=== PATIENT | male | born 1955 | race Caucasian/White ===

== ENCOUNTER 2016-10-25 09:48 | Outpatient (CLI) | payer OTHER | END 2016-10-25 23:59 | DX: I10 Essential (primary) hypertension (principal); E78.5 Hyperlipidemia, unspecified; R31.9 Hematuria, unspecified; Z12.5 Encounter for screening for malignant neoplasm of prostate ==

== ENCOUNTER 2017-12-21 08:00 | Outpatient (CLI) | payer OTHER ==
[2017-12-21 19:27] LABS: BASOPHILS # (AUTO) 0.1 10^3/uL (0.0-0.1); BASOPHILS % (AUTO) 1.1 %; EOSINOPHILS # (AUTO) 0.2 10^3/uL (0.0-0.7); EOSINOPHILS % (AUTO) 4.5 %; HGB - HEMOGLOBIN 14.6 g/dL (14.0-18.0); LYMPHOCYTES # (AUTO) 2.2 10^3/uL (1.5-3.5); LYMPHOCYTES % (AUTO) 39.9 %; MEAN CORPUSCULAR HEMOGLOBIN 27.2 pg (27.0-31.0); MEAN CORPUSCULAR HGB CONC 31.9 g/dL (32.0-36.0); MEAN CORPUSCULAR VOLUME 85.1 fL (80.0-94.0); MONOCYTES # (AUTO) 0.4 10^3/uL (0.0-1.0); MONOCYTES % (AUTO) 7.4 %; NEUTROPHILS # (AUTO) 2.6 10^3/uL (1.5-6.6); NEUTROPHILS % (AUTO) 47.1 %; PLT - PLATELET COUNT 165 10^3/uL (130-450); RED BLOOD COUNT 5.39 10^6/uL (4.70-6.10); RED CELL DISTRIBUTION WIDTH 13.3 % (12.0-15.0); WHITE BLOOD COUNT 5.5 x10^3/uL (4.8-10.8)
[2017-12-21 19:36] LABS: ALBUMIN 4.5 g/dL (3.2-5.5); ALBUMIN/GLOBULIN RATIO 1.2 (1.0-2.2); ALKALINE PHOSPHATASE 53 IU/L (42-121); ALT ALANINE AMINOTRANSFERASE 27 IU/L (10-60); AST ASPARTATE AMINOTRANSFERASE 30 IU/L (10-42); BILIRUBIN,TOTAL 1.2 mg/dL (0.2-1.0); BUN - BLOOD UREA NITROGEN 14 mg/dL (6-20); CALCIUM 9.7 mg/dL (8.5-10.3); CARBON DIOXIDE - CO2 28 mmol/L (21-32); CHLORIDE 104 mmol/L (101-111); CHOL/HDL RATIO 6.1 (<5.0); CHOLESTEROL 225 mg/dL; CREATININE 0.9 mg/dL (0.6-1.2); GFR - MDRD 86 (>89); GLUCOSE 93 mg/dL (70-100); HDL CHOLESTEROL 37 mg/dL; LDL CHOLESTEROL,CALCULATED 157 mg/dL; LDL/HDL RATIO 4.2 (<3.6); SODIUM 141 mmol/L (135-145); TOTAL PROTEIN 8.2 g/dL (6.7-8.2); VLDL CHOLESTEROL 31 mg/dL
== END 2017-12-21 08:01 | disposition home or self-care (01) ==
LOC: LAB.WCP 08:00
PROVIDERS: ATTEND Family Medicine
DX: Z12.5 Encounter for screening for malignant neoplasm of prostate (principal); I10 Essential (primary) hypertension; E78.5 Hyperlipidemia, unspecified
CPT/HCPCS: 36415; 80053; 80061; 83721; 84153; 84443; 85025

== ENCOUNTER 2019-01-04 08:00 | Outpatient (CLI) | payer OTHER ==
[2019-01-04 12:47] LABS: BASOPHILS # (AUTO) 0.1 10^3/uL (0.0-0.1); BASOPHILS % (AUTO) 1.2 %; EOSINOPHILS # (AUTO) 0.2 10^3/uL (0.0-0.7); EOSINOPHILS % (AUTO) 3.1 %; HGB - HEMOGLOBIN 14.2 g/dL (14.0-18.0); LYMPHOCYTES # (AUTO) 2.7 10^3/uL (1.5-3.5); LYMPHOCYTES % (AUTO) 42.6 %; MEAN CORPUSCULAR HEMOGLOBIN 27.5 pg (27.0-31.0); MEAN CORPUSCULAR HGB CONC 32.5 g/dL (32.0-36.0); MEAN CORPUSCULAR VOLUME 84.6 fL (80.0-94.0); MEAN PLATELET VOLUME 9.8 fL (7.4-11.4); MONOCYTES # (AUTO) 0.6 10^3/uL (0.0-1.0); MONOCYTES % (AUTO) 8.8 %; NEUTROPHILS # (AUTO) 2.8 10^3/uL (1.5-6.6); NEUTROPHILS % (AUTO) 44.3 %; PLT - PLATELET COUNT 160 10^3/uL (130-450); RED BLOOD COUNT 5.17 10^6/uL (4.70-6.10); RED CELL DISTRIBUTION WIDTH 13.2 % (12.0-15.0); WHITE BLOOD COUNT 6.3 x10^3/uL (4.8-10.8)
[2019-01-04 12:54] LABS: BILIRUBIN,URINE NEGATIVE (NEGATIVE); GLUCOSE, URINE (UA) NEGATIVE (NEGATIVE); KETONES,URINE (UA) NEGATIVE (NEGATIVE); LEUKOCYTE ESTERASE, URINE NEGATIVE (NEGATIVE); NITRITE,URINE NEGATIVE (NEGATIVE); OCCULT BLOOD,URINE NEGATIVE (NEGATIVE); PROTEIN,URINE NEGATIVE (NEGATIVE); UROBILINOGEN,URINE 0.2 (NORMAL) E.U./dL (NORMAL)
[2019-01-04 12:56] LABS: CLARITY,URINE CLEAR (CLEAR)
[2019-01-04 13:05] LABS: ALBUMIN 4.1 g/dL (3.2-5.5); ALBUMIN/GLOBULIN RATIO 1.1 (1.0-2.2); ALKALINE PHOSPHATASE 51 IU/L (42-121); ALT ALANINE AMINOTRANSFERASE 22 IU/L (10-60); AST ASPARTATE AMINOTRANSFERASE 29 IU/L (10-42); BILIRUBIN,TOTAL 1.2 mg/dL (0.2-1.0); BUN - BLOOD UREA NITROGEN 17 mg/dL (6-20); CALCIUM 8.9 mg/dL (8.5-10.3); CARBON DIOXIDE - CO2 23 mmol/L (21-32); CHLORIDE 106 mmol/L (101-111); CHOL/HDL RATIO 4.7 (<5.0); CHOLESTEROL 180 mg/dL; CREATININE 0.9 mg/dL (0.6-1.2); GFR - MDRD 86 (>89); GLUCOSE 91 mg/dL (70-100); HDL CHOLESTEROL 38 mg/dL; LDL CHOLESTEROL,CALCULATED 114 mg/dL; SODIUM 139 mmol/L (135-145); TOTAL PROTEIN 7.8 g/dL (6.7-8.2); VLDL CHOLESTEROL 28 mg/dL
== END 2019-01-04 23:59 | disposition home or self-care (01) ==
LOC: LAB.WCP 08:00
PROVIDERS: ATTEND Family Medicine
DX: I10 Essential (primary) hypertension (principal); E78.5 Hyperlipidemia, unspecified; Z12.5 Encounter for screening for malignant neoplasm of prostate; R31.9 Hematuria, unspecified
CPT/HCPCS: 36415; 80053; 80061; 81001; 81003; 83721; 84153; 85025; 87086

== ENCOUNTER 2019-04-11 09:00 | Outpatient (CLI) | payer OTHER ==
--- NOTE | 2019-04-13 08:47 | XRAY Report ---
Reason: RIGHT KNEE PAIN Procedure Date: 04/11/2019 Accession Number: [id number] / [id number] Procedure: WCP - Knee 3 View RT CPT Code: FULL RESULT: EXAM: RIGHT KNEE RADIOGRAPHY EXAM DATE: 04/11/2019 12:17 PM. CLINICAL HISTORY: Right knee pain. COMPARISON: None. TECHNIQUE: 3 views. FINDINGS: Bones: Normal. No fractures or bone lesions. No significant osteophytic spurring. Joints: Minimal narrowing of the medial compartment of the knee. No chondrocalcinosis. Soft Tissues: Normal. No soft tissue swelling. IMPRESSION: Minimal degenerative changes at the knee. RADIA
== END 2019-04-11 23:59 | disposition home or self-care (01) ==
LOC: DI.WCP 09:00 → EDSTATUS 13:28 → DI.WCP 23:59
PROVIDERS: ATTEND Family Medicine
DX: M17.11 Unilateral primary osteoarthritis, right knee (principal)

== ENCOUNTER 2019-06-16 09:47 | Outpatient (CLI) | payer OTHER ==
--- NOTE | 2019-06-17 17:21 | MRI Report ---
Reason: RT KNEE PAIN Procedure Date: 06/16/2019 Accession Number: [id number] / [id number] Procedure: MRI - Knee RT W/O CPT Code: Final Report FULL RESULT: EXAM: RIGHT KNEE MRI WITHOUT CONTRAST EXAM DATE: 06/16/2019 10:25 AM. CLINICAL HISTORY: Right knee pain. COMPARISON: Radiographs 04/11/2019. TECHNIQUE: Multiplanar, multisequence T1-weighted and fluid-sensitive sequences of the knee without contrast. Other: None. FINDINGS: Bones: No fracture or bone lesion. Mild subchondral edema and cystic changes at the far posterior aspect medial femoral condyle and median ridge of the patella. Articular Cartilage: Small region deep partial to full-thickness loss far posterior aspect medial femoral condyle. Shallow partial-thickness loss far posterior aspect lateral femoral condyle. Moderate-sized region of deep partial-thickness loss and deep partial to full-thickness fissuring/tearing medial and lateral patellar facets extending over the median ridge. Small focus deep partial to full-thickness fissuring/tearing medial trochlea. Medial Meniscus: Complex tear of the body with deep radial component through the central substance and horizontal component contacting the superior articular surface. Extruded versus flipped fragment extends 0.7 cm into the superior gutter. Horizontal tear extends throughout the free edge posterior horn. Lateral Meniscus: The lateral meniscus is intact. Cruciate Ligaments: The anterior and posterior cruciate ligaments are intact. Collateral Ligaments: The medial collateral and lateral collateral ligamentous structures are intact. Tendons: Mild quadriceps and patellar tendinopathy. Popliteus and semimembranosus tendons unremarkable. Musculature: No edema or fatty atrophy. Other: Small joint effusion with synovitis.Minimal popliteal cyst. No loose bodies. The medial and lateral retinacula are intact. Mild to moderate subcutaneous edema anteriorly. 1.4 cm ovoid focal component of fluid with insinuating fat over the proximal patellar tendon. Minimal reactive edema in the anterior fat pads. IMPRESSION: 1. Complex degenerative tear body and posterior horn medial meniscus with radial and horizontal components and extruded versus flipped fragment. 2. Mild quadriceps and patellar tendinopathy. 3. Small joint effusion with synovitis. 4. Mild to moderate cartilage loss of the medial and patellofemoral compartments with deep partial to full-thickness fissuring/tearing at the patellofemoral joint. 5. Mild prepatellar fluid collection. This may be due to bursitis. Sequelae of hematoma and more lobulated lesion also in the differential. Recommend clinical correlate. RADIA
== END 2019-06-16 09:48 | disposition home or self-care (01) ==
LOC: DI 09:47
PROVIDERS: ATTEND Family Medicine
DX: S83.241A Other tear of medial meniscus, current injury, right knee, initial encounter (principal); S76.111A Strain of right quadriceps muscle, fascia and tendon, initial encounter; M65.861 Other synovitis and tenosynovitis, right lower leg

== ENCOUNTER 2020-06-09 14:29 | Outpatient (CLI) | payer OTHER ==
[2020-06-09 17:47] LABS: BILIRUBIN,URINE NEGATIVE (NEGATIVE); CLARITY,URINE CLEAR (CLEAR); GLUCOSE, URINE (UA) NEGATIVE (NEGATIVE); KETONES,URINE (UA) NEGATIVE (NEGATIVE); LEUKOCYTE ESTERASE, URINE NEGATIVE (NEGATIVE); NITRITE,URINE NEGATIVE (NEGATIVE); OCCULT BLOOD,URINE NEGATIVE (NEGATIVE); PROTEIN,URINE NEGATIVE (NEGATIVE); UROBILINOGEN,URINE 0.2 (NORMAL) E.U./dL (NORMAL)
[2020-06-09 17:53] LABS: BACTERIA,URINE None Seen /HPF (None Seen); RBC,URINE None Seen /HPF (0-5); SQUAMOUS EPITHELIAL CELL,UR NONE SEEN (<= Few)
[2020-06-09 17:58] LABS: BASOPHILS # (AUTO) 0.1 10^3/uL (0.0-0.1); BASOPHILS % (AUTO) 0.9 %; EOSINOPHILS # (AUTO) 0.4 10^3/uL (0.0-0.7); EOSINOPHILS % (AUTO) 4.7 %; HGB - HEMOGLOBIN 14.9 g/dL (14.0-18.0); LYMPHOCYTES # (AUTO) 2.9 10^3/uL (1.5-3.5); LYMPHOCYTES % (AUTO) 31.7 %; MEAN CORPUSCULAR HEMOGLOBIN 27.6 pg (27.0-31.0); MEAN CORPUSCULAR HGB CONC 31.7 g/dL (32.0-36.0); MEAN PLATELET VOLUME 12.3 fL (7.4-11.4); MONOCYTES # (AUTO) 0.9 10^3/uL (0.0-1.0); MONOCYTES % (AUTO) 9.7 %; NEUTROPHILS # (AUTO) 4.9 10^3/uL (1.5-6.6); NEUTROPHILS % (AUTO) 52.7 %; PLT - PLATELET COUNT 196 10^3/uL (130-450); RED CELL DISTRIBUTION WIDTH 12.9 % (12.0-15.0); WHITE BLOOD COUNT 9.2 x10^3/uL (4.8-10.8)
[2020-06-09 18:15] LABS: ALKALINE PHOSPHATASE 54 IU/L (42-121); ALT ALANINE AMINOTRANSFERASE 27 IU/L (10-60); AST ASPARTATE AMINOTRANSFERASE 26 IU/L (10-42); BILIRUBIN,TOTAL 0.7 mg/dL (0.2-1.0); BUN - BLOOD UREA NITROGEN 17 mg/dL (6-20); CALCIUM 9.6 mg/dL (8.5-10.3); CARBON DIOXIDE - CO2 25 mmol/L (21-32); CHLORIDE 105 mmol/L (101-111); CHOLESTEROL 191 mg/dL; CREATININE 1.1 mg/dL (0.6-1.2); GLUCOSE 103 mg/dL (70-100); HDL CHOLESTEROL 38 mg/dL; LDL CHOLESTEROL,CALCULATED 110 mg/dL; LDL/HDL RATIO 2.9 (<3.6); SODIUM 139 mmol/L (135-145); VLDL CHOLESTEROL 43 mg/dL
== END 2020-06-09 23:59 | disposition home or self-care (01) ==
LOC: LAB.WCP 14:29
PROVIDERS: ATTEND Family Medicine
DX: Z00.00 Encounter for general adult medical examination without abnormal findings (principal); M10.072 Idiopathic gout, left ankle and foot; R31.9 Hematuria, unspecified; Z12.5 Encounter for screening for malignant neoplasm of prostate
CPT/HCPCS: 36415; 80053; 80061; 81001; 83721; 84153; 84550; 85025; 85651; 87086

== ENCOUNTER 2021-05-05 15:57 | Outpatient (CLI) | payer OTHER ==
--- NOTE | 2021-05-05 19:18 | XRAY Report ---
PROCEDURE: Lumbar Spine 2 View INDICATIONS: LUMBAR BACK PX TECHNIQUE: 2 views of the lumbar spine were acquired. COMPARISON: None. FINDINGS: Bones: 5 [id number] vertebrae are present. There is normal bony alignment. (06/27/2012 2016. No vertebral body compression fractures. No suspicious bony lesions. Soft tissues: Overlying bowel gas pattern is normal. No suspicious soft tissue calcifications. IMPRESSION: Degenerative disc disease throughout lower thoracic and lumbar spine. No acute compressi on fracture or spondylolisthesis. Reviewed by: Carter Winn MD on 05/05/2021 7:17 PM PDT Approved by: Carter Winn MD on 05/05/2021 7:17 PM PDT Station ID: [id number]
--- NOTE | 2021-05-05 19:44 | XRAY Report ---
PROCEDURE: Abdomen 1 View X-Ray INDICATIONS: LUMBAR BACK PX TECHNIQUE: 1 view of the abdomen were acquired. COMPARISON: None. FINDINGS: Surgical changes and devices: None. Bowel: No pneumoperitoneum. The bowel gas pattern is normal. Soft tissues: No masses; visualized solid organ contours appear normal in size. No suspicious abdom inal calcifications. Bones: No suspicious bony abnormalities. IMPRESSION: No gross renal calcification. No bowel obstruction or gross free air. Reviewed by: Carter Winn MD on 05/05/2021 7:43 PM PDT Approved by: Carter Winn MD on 05/05/2021 7:43 PM PDT Station ID: [id number]
== END 2021-05-05 23:59 | disposition home or self-care (01) ==
LOC: DI.N 15:57
PROVIDERS: ATTEND Physician Assistant Medical
DX: M51.36 Other intervertebral disc degeneration, lumbar region (principal)

== ENCOUNTER 2021-07-07 14:34 | Outpatient (CLI) | payer OTHER ==
[2021-07-07 18:35] LABS: BASOPHILS # (AUTO) 0.1 10^3/uL (0.0-0.1); BASOPHILS % (AUTO) 1.1 %; EOSINOPHILS # (AUTO) 0.4 10^3/uL (0.0-0.7); EOSINOPHILS % (AUTO) 5.2 %; HCT - HEMATOCRIT 46.7 % (42.0-52.0); HGB - HEMOGLOBIN 14.6 g/dL (14.0-18.0); LYMPHOCYTES # (AUTO) 3.1 10^3/uL (1.5-3.5); LYMPHOCYTES % (AUTO) 40.5 %; MEAN CORPUSCULAR HGB CONC 31.3 g/dL (32.0-36.0); MEAN CORPUSCULAR VOLUME 86.5 fL (80.0-94.0); MEAN PLATELET VOLUME 11.5 fL (7.4-11.4); MONOCYTES # (AUTO) 0.6 10^3/uL (0.0-1.0); MONOCYTES % (AUTO) 8.2 %; NEUTROPHILS # (AUTO) 3.4 10^3/uL (1.5-6.6); NEUTROPHILS % (AUTO) 44.7 %; PLT - PLATELET COUNT 205 10^3/uL (130-450); WHITE BLOOD COUNT 7.5 x10^3/uL (4.8-10.8)
[2021-07-07 18:36] LABS: BILIRUBIN,URINE NEGATIVE (NEGATIVE); GLUCOSE, URINE (UA) NEGATIVE (NEGATIVE); KETONES,URINE (UA) NEGATIVE (NEGATIVE); LEUKOCYTE ESTERASE, URINE NEGATIVE (NEGATIVE); NITRITE,URINE NEGATIVE (NEGATIVE); OCCULT BLOOD,URINE NEGATIVE (NEGATIVE); PH,URINE 5.5 PH (5.0-7.5); PROTEIN,URINE NEGATIVE (NEGATIVE); UROBILINOGEN,URINE 0.2 (NORMAL) E.U./dL (NORMAL)
[2021-07-07 18:43] LABS: BACTERIA,URINE None Seen /HPF (None Seen); CLARITY,URINE CLEAR (CLEAR); RBC,URINE None Seen /HPF (0-5); SQUAMOUS EPITHELIAL CELL,UR NONE SEEN (<= Few); WBC,URINE 0-3 /HPF (0-3)
[2021-07-07 19:04] LABS: ALBUMIN 4.2 g/dL (3.2-5.5); ALBUMIN/GLOBULIN RATIO 1.1 (1.0-2.2); ALKALINE PHOSPHATASE 59 IU/L (42-121); ALT ALANINE AMINOTRANSFERASE 34 IU/L (10-60); AST ASPARTATE AMINOTRANSFERASE 28 IU/L (10-42); BILIRUBIN,TOTAL 0.5 mg/dL (0.2-1.0); BUN - BLOOD UREA NITROGEN 19 mg/dL (6-20); CALCIUM 9.1 mg/dL (8.5-10.3); CARBON DIOXIDE - CO2 26 mmol/L (21-32); CHLORIDE 103 mmol/L (101-111); CHOL/HDL RATIO 6.1 (<5.0); CHOLESTEROL 206 mg/dL; GFR - MDRD 75 (>89); GLUCOSE 99 mg/dL (70-100); HDL CHOLESTEROL 34 mg/dL; LDL CHOLESTEROL,CALCULATED 129 mg/dL; LDL/HDL RATIO 3.8 (<3.6); POTASSIUM 4.2 mmol/L (3.5-5.0); SODIUM 139 mmol/L (135-145); TOTAL PROTEIN 8.1 g/dL (6.7-8.2); TRIGLYCERIDES 213 mg/dL; URIC ACID 8.1 mg/dL (2.6-7.2); VLDL CHOLESTEROL 43 mg/dL
== END 2021-07-07 23:59 | disposition home or self-care (01) ==
LOC: LAB.WCP 14:34
PROVIDERS: ATTEND Family Medicine
DX: I10 Essential (primary) hypertension (principal); E78.5 Hyperlipidemia, unspecified; R31.9 Hematuria, unspecified; Z12.5 Encounter for screening for malignant neoplasm of prostate; M10.072 Idiopathic gout, left ankle and foot
CPT/HCPCS: 36415; 80053; 80061; 81001; 83721; 84153; 84550; 85025; 87086

== ENCOUNTER 2022-11-25 09:46 | Outpatient (CLI) | payer BC, MEDICARE, OTHER ==
[2022-11-25 11:33] LABS: BASOPHILS # (AUTO) 0.1 10^3/uL (0.0-0.1); BASOPHILS % (AUTO) 1.1 %; EOSINOPHILS # (AUTO) 0.3 10^3/uL (0.0-0.7); EOSINOPHILS % (AUTO) 4.3 %; HCT - HEMATOCRIT 46.7 % (42.0-52.0); HGB - HEMOGLOBIN 14.5 g/dL (14.0-18.0); LYMPHOCYTES # (AUTO) 2.7 10^3/uL (1.5-3.5); LYMPHOCYTES % (AUTO) 41.2 %; MEAN PLATELET VOLUME 11.6 fL (7.4-11.4); MONOCYTES # (AUTO) 0.7 10^3/uL (0.0-1.0); MONOCYTES % (AUTO) 10.2 %; NEUTROPHILS # (AUTO) 2.8 10^3/uL (1.5-6.6); PLT - PLATELET COUNT 198 10^3/uL (130-450); RED BLOOD COUNT 5.37 10^6/uL (4.70-6.10); RED CELL DISTRIBUTION WIDTH 12.7 % (12.0-15.0); WHITE BLOOD COUNT 6.5 x10^3/uL (4.8-10.8)
[2022-11-25 11:57] LABS: ESTIMATED AVERAGE GLUCOSE 131 mg/dL (70-100); HEMOGLOBIN A1c% 6.2 % (4.27-6.07)
[2022-11-25 12:04] LABS: ALBUMIN 4.2 g/dL (3.2-5.5); ALBUMIN/GLOBULIN RATIO 1.2 (1.0-2.2); ALKALINE PHOSPHATASE 56 IU/L (42-121); ALT ALANINE AMINOTRANSFERASE 33 IU/L (10-60); AST ASPARTATE AMINOTRANSFERASE 31 IU/L (10-42); BILIRUBIN,TOTAL 0.9 mg/dL (0.2-1.0); BUN - BLOOD UREA NITROGEN 15 mg/dL (6-20); CALCIUM 9.2 mg/dL (8.5-10.3); CARBON DIOXIDE - CO2 28 mmol/L (21-32); CHLORIDE 103 mmol/L (101-111); CHOL/HDL RATIO 4.9 (<5.0); CHOLESTEROL 196 mg/dL; CREATININE 0.9 mg/dL (0.6-1.2); GFR - MDRD 85 (>89); GLUCOSE 99 mg/dL (70-100); HDL CHOLESTEROL 40 mg/dL; LDL CHOLESTEROL,CALCULATED 120 mg/dL; SODIUM 136 mmol/L (135-145); TOTAL PROTEIN 7.8 g/dL (6.7-8.2); TRIGLYCERIDES 182 mg/dL; URIC ACID 8.2 mg/dL (2.6-7.2); VLDL CHOLESTEROL 36 mg/dL
[2022-11-25 12:21] LABS: THYROID STIMULATING HORMONE 1.72 uIU/mL (0.34-5.60)
== END 2022-11-25 09:47 | disposition home or self-care (01) ==
LOC: LAB.N 09:46
PROVIDERS: ATTEND Nurse Practitioner Family
DX: I10 Essential (primary) hypertension (principal); E78.5 Hyperlipidemia, unspecified; Z87.39 Personal history of other diseases of the musculoskeletal system and connective tissue
CPT/HCPCS: 36415; 80053; 80061; 83036; 83721; 84443; 84550; 85025

== ENCOUNTER 2023-05-26 12:59 | Outpatient (CLI) | payer OTHER ==
[2023-05-26 18:06] LABS: BUN - BLOOD UREA NITROGEN 20 mg/dL (6-20); CALCIUM 9.6 mg/dL (8.5-10.3); CARBON DIOXIDE - CO2 30 mmol/L (21-32); CHLORIDE 103 mmol/L (101-111); CHOL/HDL RATIO 5.1 (<5.0); CHOLESTEROL 193 mg/dL; GFR - MDRD 75 (>89); GLUCOSE 101 mg/dL (74-104); HDL CHOLESTEROL 38 mg/dL; LDL CHOLESTEROL,CALCULATED 115 mg/dL; POTASSIUM 4.1 mmol/L (3.5-4.5); SODIUM 138 mmol/L (135-145); TRIGLYCERIDES 199 mg/dL (48-352); VLDL CHOLESTEROL 40 mg/dL
[2023-05-26 20:31] LABS: ESTIMATED AVERAGE GLUCOSE 128 mg/dL (70-100); HEMOGLOBIN A1c% 6.1 % (4.27-6.07)
== END 2023-05-26 13:00 | disposition home or self-care (01) ==
LOC: LAB.N 12:59
PROVIDERS: ATTEND Nurse Practitioner Family
DX: I10 Essential (primary) hypertension (principal); E66.9 Obesity, unspecified; R73.03 Prediabetes; E78.5 Hyperlipidemia, unspecified
CPT/HCPCS: 36415; 80048; 80061; 83036; 83721

== ENCOUNTER 2023-11-22 07:31 | Outpatient (CLI) | payer OTHER ==
--- NOTE | 2023-11-22 07:53 | CARDIAC PROCEDURE NOTE ---
Stress Test Report Service Date: 11/22/23 Service Time: 08:00 Ordering Provider: Swapna Soto ARNP, CFNP Indication for Test: Risk stratification in patient with an elevated cardiac risk factor profile found to have an abnormal EKG recently. Significant Medical History: Kalyan is referred for a treadmill stress echocardiogram today, in the setting of multiple cardiovascular disease risk factors, as elaborated below, and a recent EKG notable for sinus bradycardia, left axis deviation/possible left anterior fascicular block and a diffusely abnormal T-wave pattern. He has a rather sedentary job, and does not exercise regularly outside the workplace. He reports that he has not been aware of any specific cardiac symptoms nor loss in his exertional tolerance. He has been treated for hypertension and hyperlipidemia over the past 5 months, and denies concerns with his medications, which he takes in the evening prior to going to work on the [employer]. Cardiac Risk Factors: Positive for hypertenstion (treated for the past 5 months), hyperlipidemia (also treated for 5 months after baseline fasting panel that included TChol 193, LDLc 115, HDLc 38, TG 199) and family history of ASCVD events in multiple family members on both sides of his family, including both parents, as well as recent pre-diabetes diagnosis. He smoked cigarettes for a brief interval but quit over 30 yrs ago, so this is no longer a risk. Type of Stress Test: ETT with Echocardiography Procedure: -Exercise Treadmill Test- After signing informed consent, the patient underwent echo imaging at rest and then performed treadmill exercise using a Jose protocol. The patient exercised for 8 minutes 52 seconds and achieved a peak heart rate of 148 (96 percent predicted maximum heart rate for age), and an estimated workload of 10.2 METS. The test was terminated due to fatigue/shortness of breath. Resting heart rate: 63 Peak heart rate: 148 Normal response to exercise. Resting BP: 132/90 Peak BP: 171/90 Hypertensive diastolic BP at rest, with physiologic increase of systolic BP in response to exercise. Room air oxygen saturation ranged between 96-98% throughout the exercise period. Rhythm during exercise: Sinus rhythm throughout, without ectopy. Symptoms: Only fatigue and mild breathlessness, no concern for chest pressure/pain/discomfort. EKG at rest normal sinus rhythm with left axis deviation/probable left anterior fascicular block pattern with diffusely flat or inverted T waves and prolongation of QTc to 537 ms, per computer analysis. EKG at peak stress showed no ischemia by EKG criteria, with normalization of T wave pattern in most leads and transient appearance of an incomplete right bundle block QRS morphology (likely rate-related). In Recovery there was rapid decrease in blood pressure and heart rate to near resting levels at 5:00. Echo imaging, performed at rest and with stress, will be reported separately. Eder Braxton MD, was present throughout this treadmill stress study and supervised it in its entirety. Summary: 1) Exercise tolerance above average for age and sex as evidenced by BILLY of -15%. 2) Abnormal resting EKG, though with isoelectric/interpretable ST segments. 3) Adequate level of exercise was achieved on this treadmill stress test. 4) Normal BP response to exercise. 5) No ischemic changes by EKG criteria were seen at peak stress. 6) Echo image interpretation reveals normal resting left ventricular size, wall thickness and systolic function, with trace-mild aortic regurgitation seen on screening study, without elevation of estimated pulmonary artery systolic pressure. Following exercise there was appropriate hyperdynamic augmentation except for a small area at the apex, consistent with inducible ischemia, without prior infarct. See separate report for more details. Conclusions and Recommendations: 1) Abnormal treadmill stress echocardiogram, revealing a small area of apical ischemia by echocardiographic analysis. 2) Favorable findings included above average exercise time, physiologic response of heart rate and blood pressure with no EKG evidence of ischemia. 3) The patient was advised to remain at his current level of activity, though he did describe a plan to become more active through working out at [employer] if safe to do so subsequently. 4) Formal Cardiology consultation is recommended for further assessment and management.
== END 2023-11-22 07:32 | disposition home or self-care (01) ==
LOC: DI 07:31
PROVIDERS: ATTEND Nurse Practitioner Family
DX: I25.9 Chronic ischemic heart disease, unspecified (principal); R94.31 Abnormal electrocardiogram [ECG] [EKG]; R00.1 Bradycardia, unspecified; R73.03 Prediabetes; E78.5 Hyperlipidemia, unspecified; I10 Essential (primary) hypertension; Z82.49 Family history of ischemic heart disease and other diseases of the circulatory system
CPT/HCPCS: 93350